=== PATIENT | female | born 1945 | race Caucasian/White ===

== ENCOUNTER → 2020-08-06 09:32 | Outpatient (CLI) | payer MEDICARE, SELFPAY ==
--- NOTE | 2020-08-06 09:39 | DI.CT.S_ITS ---
PROCEDURE: CT SINUS SCREEN WO CON INDICATIONS: Chronic pansinusitis TECHNIQUE: Noncontrast 3.0 mm axial images acquired from the frontal sinuses to the mid-sella, with coronal and sagittal reformats. For radiation dose reduction, the following was used: automated exposure control, adjustment of mA and/or kV according to patient size. COMPARISON: None. FINDINGS: Image quality: Excellent. Maxillary Sinuses: No bony remodeling or destruction. Mild mucosal thickening is seen on the left. There is minimal mucosal thickening seen on the right. Ethmoid Air Cells: No bony remodeling or destruction. Sinuses are clear. Sphenoid Sinuses: No bony remodeling or destruction. Sinuses are clear. Frontal Sinuses: No bony remodeling or destruction. Sinuses are clear. Ostiomeatal Complexes: Ostiomeatal complexes are patent. No Caleb cells. Miscellaneous: Visualized intra-orbital contents are normal. No syed bullosa or paradoxical turbinate curvature. There is mild S shaped nasal septal deviation. Incidental note is made of hyperostosis frontalis. This is not considered to be pathologic in a woman of this age. IMPRESSION: Mild maxillary sinus disease. Dictated by: Jamel Mcdaniel M.D. on 08/06/2020 at 9:53 Approved by: Jamel Mcdaniel M.D. on 08/06/2020 at 9:55
== END ==
PROVIDERS: PCP Physician Assistant; Referring Provider Otolaryngology; Visit Provider Otolaryngology
DX: J32.4 Chronic pansinusitis (principal)
CPT/HCPCS: 70486

== ENCOUNTER → 2021-06-03 12:28 | Outpatient (CLI) | payer MEDICARE, SELFPAY ==
--- NOTE | 2021-06-03 12:33 | DI.MG.S_ITS ---
BILATERAL DIGITAL SCREENING MAMMOGRAM 3D/2D WITH CAD: 06/03/2021 CLINICAL: Routine screening. Family history of breast cancer. Comparison is made to exams dated: 04/06/2020 mammogram, 03/08/2019 mammogram, and 03/06/2018 mammogram - outside location. There are scattered fibroglandular elements in both breasts. Current study was also evaluated with a Computer Aided Detection (CAD) system. No significant masses, calcifications, or other findings are seen in either breast. There has been no significant interval change. IMPRESSION: NEGATIVE There is no mammographic evidence of malignancy. A 1 year screening mammogram is recommended. This exam was interpreted at Station ID: [id number]. NOTE: For mammograms, a report in lay terms will be sent to the patient. Approximately 15% of breast malignancies will not be visualized mammographically. In the management of a palpable breast mass, a negative mammogram must not discourage biopsy of a clinically suspicious lesion. Electronically Signed By: Ed hadley/jessica:06/03/2021 13:58:56 letter sent: Normal Exam ACR BI-RADS Category 1: Negative 3341F
== END ==
PROVIDERS: PCP Internal Medicine; Referring Provider Internal Medicine; Visit Provider Internal Medicine
DX: Z12.31 Encounter for screening mammogram for malignant neoplasm of breast (principal); Z80.3 Family history of malignant neoplasm of breast
CPT/HCPCS: 77063; 77067

== ENCOUNTER → 2022-07-28 08:51 | Outpatient (CLI) | payer OTHER, SELFPAY ==
--- NOTE | 2022-07-28 | DI.MG.S_ITS ---
BILATERAL DIGITAL SCREENING MAMMOGRAM 3D/2D WITH CAD: 07/28/2022 CLINICAL: Routine screening. Family history of breast cancer. Comparison is made to exams dated: 06/03/2021 mammogram - [facility], 04/06/2020 mammogram, and 03/08/2019 mammogram - outside location. There are scattered areas of fibroglandular density in both breasts (category b / 25%-50% glandular tissue). Current study was also evaluated with a Computer Aided Detection (CAD) system. No significant masses, calcifications, or other findings are seen in either breast. There has been no significant interval change. IMPRESSION: NEGATIVE There is no mammographic evidence of malignancy. A 1 year screening mammogram is recommended. Based on the Tyrer Cuzick model (a risk assessment model) the patient's lifetime risk is 3.1% and her 10 year risk is 0.0%. According to the ACR, ACS, and NCCN guidelines, an annual breast MRI exam along with mammogram is recommended if the patient's lifetime risk is 20% or greater. This exam was interpreted at Station ID: [id number]. NOTE: For mammograms, a report in lay terms will be sent to the patient. Approximately 15% of breast malignancies will not be visualized mammographically. In the management of a palpable breast mass, a negative mammogram must not discourage biopsy of a clinically suspicious lesion. Electronically Signed By: Wesley paris/jessica:07/28/2022 09:17:18 letter sent: Normal Exam ACR BI-RADS Category 1: Negative 3341F
== END ==
PROVIDERS: PCP Internal Medicine; Referring Provider Internal Medicine; Visit Provider Internal Medicine
DX: Z12.31 Encounter for screening mammogram for malignant neoplasm of breast (principal); Z80.3 Family history of malignant neoplasm of breast
CPT/HCPCS: 77063; 77067

== ENCOUNTER → 2022-08-15 14:30 | Outpatient (CLI) | payer OTHER, SELFPAY | PROVIDERS: PCP Internal Medicine; Referring Provider Internal Medicine; Visit Provider Internal Medicine | DX: M85.88 Other specified disorders of bone density and structure, other site (principal); Z13.820 Encounter for screening for osteoporosis; Z78.0 Asymptomatic menopausal state; Z90.710 Acquired absence of both cervix and uterus | CPT/HCPCS: 77080 ==

== ENCOUNTER → 2023-01-27 08:16 | Outpatient (CLI) | payer MEDICARE, SELFPAY ==
--- NOTE | 2023-01-27 08:17 | DI.CT.S_ITS ---
PROCEDURE: CT SINUS SCREEN WO CON INDICATIONS: Eval chronic sinusitis TECHNIQUE: Noncontrast 3.0 mm axial images acquired from the frontal sinuses to the mid-sella, with coronal and sagittal reformats. For radiation dose reduction, the following was used: automated exposure control, adjustment of mA and/or kV according to patient size. COMPARISON: [facility], CT, CT SINUS SCREEN WO CON, 08/06/2020, 9:36. FINDINGS: Image quality: Excellent. Maxillary Sinuses: No bony remodeling or destruction. Mild mucosal thickening left maxillary sinus is similar to prior. Minimal mucosal thickening seen on the right. Ethmoid Air Cells: No bony remodeling or destruction. Sinuses are clear. Sphenoid Sinuses: No bony remodeling or destruction. Sinuses are clear. Frontal Sinuses: No bony remodeling or destruction. Minimal mucosal thickening inferiorly. Ostiomeatal Complexes: Ostiomeatal complexes are patent. No Caleb cells. Miscellaneous: Visualized intra-orbital contents are normal. No syed bullosa or paradoxical turbinate curvature. Mild S-shaped nasal septal deviation. Hyperostosis frontalis. Bilateral lens replacements. IMPRESSION: Mild scattered paranasal sinus mucosal thickening involving the maxillary sinuses and inferior frontal sinuses. Dictated by: Ricci Bruner M.D. on 01/27/2023 at 9:37 Approved by: Ricci Bruner M.D. on 01/27/2023 at 9:40
== END ==
PROVIDERS: PCP Family Medicine; Referring Provider Family Medicine; Visit Provider Family Medicine
DX: J32.8 Other chronic sinusitis (principal); J34.2 Deviated nasal septum
CPT/HCPCS: 70486

== ENCOUNTER → 2023-05-01 06:40 | Outpatient (CLI) | payer MEDICARE, SELFPAY ==
--- NOTE | 2023-05-01 06:41 | DI.CT.S_ITS ---
PROCEDURE: CT HEAD/BRAIN WO CON INDICATIONS: eval near syncope, possible afib TECHNIQUE: Noncontrast 4.5 mm thick angled axial sections acquired from the foramen magnum to the vertex, with coronal and sagittal reformats. For radiation dose reduction, the following was used: automated exposure control, adjustment of mA and/or kV according to patient size. COMPARISON: None. FINDINGS: Image quality: Excellent. CSF spaces: Basal cisterns are patent. No extra-axial fluid collections. The ventricles are symmetric in size and shape. Brain: No intracranial bleeds or masses. There is mild cerebral volume loss for age, with resultant ventricular and sulcal prominence. There are minimal periventricular and deep white matter chronic small vessel ischemic changes. There is minimal intracranial internal carotid artery atherosclerosis. Skull and face: Calvarium and visualized facial bones appear intact, without suspicious lesions. Sinuses: Visualized sinuses and mastoids are clear. IMPRESSION: CT head without acute intracranial abnormalities. Dictated by: Roe Gauthier M.D. on 05/01/2023 at 8:02 Approved by: Roe Gauthier M.D. on 05/01/2023 at 8:03
--- NOTE | 2023-05-01 06:41 | DI.ECHO.S_ITS ---
[place] [facility]---------+ [facility] +---------+ : : [address] : : : : [id number] : : : : Phone: [phone]+ Echocardiogram Report + + :Name: TEJAS RUDOLPH Study Date: 05/01/2023 Height: 67.5 in: :[facility] ReadingLocation: Weight: 230 lb : : Gender: Female BSA: 2.2 m2 : :: 1945 Age: 78 yrs BP: 159/92 mmHg: :Reason For Study: NEAR SYNCOPE, POSSIBLE AFIB : :Ordering Physician: FRANCHESCA, : :DEREJE Performed By: Fifi Fam : :Referring: DEREJE SORENSEN : + + Interpretation Summary The ejection fraction is estimated to be 55-60%. Diastolic parameters suggest probable normal left ventricular diastolic function and normal filling pressures. The right ventricle is normal in size and function. There is mild mitral regurgitation. There is trace aortic regurgitation. Pulmonary artery pressures cannot be estimated because of the lack of a measurable TR jet velocity but the IVC suggests a CVP of around 3 mmHg. Procedure: A two-dimensional transthoracic echocardiogram with color flow and Doppler was performed. The study quality was technically adequate. There is no prior echocardiogram noted for this patient. The patient was in sinus rhythm with heart rates between 59-74 bpm during the exam. Left Ventricle: The left ventricle is normal in size and wall thickness. The ejection fraction is estimated to be 55-60%. Diastolic parameters suggest probable normal left ventricular diastolic function and normal filling pressures. Right Ventricle: The right ventricle is normal in size and function. Atria: The left atrial size is normal. Right atrial size is normal. There is no Doppler evidence for an interatrial shunt. Mitral Valve: The mitral valve leaflets appear borderline thickened, but open well. There is mild mitral regurgitation. Aortic Valve: The aortic valve is trileaflet. There is no aortic valve stenosis. There is trace aortic regurgitation. Tricuspid Valve: The tricuspid valve is normal in structure and function. No tricuspid regurgitation. Pulmonary artery pressures cannot be estimated because of the lack of a measurable TR jet velocity but the IVC suggests a CVP of around 3 mmHg. Pulmonic Valve: The pulmonic valve leaflets are thin and pliable; valve motion is normal. There is mild pulmonic regurgitation. Great Vessels: The aortic root is normal size. The dimensions of the ascending aorta are normal. The IVC is of normal diameter and collapses greater than 50% with a sniff. This suggests a low right atrial pressure of 3 mm Hg. Pericardium/ Pleura There is no pericardial effusion. There is no pleural effusion. MMode/2D Measurements & Calculations LVIDd: 5.4 cm LVOT diam: 2.3 cm LVIDs: 3.5 cm Ao root diam: 2.8 cm FS: 34.6 % asc Aorta Diam: 3.1 cm EPSS: 1.1 cm Ao Arch Diam (Prox Trans): 2.3 cm IVSd: 0.77 cm LVPWd: 0.90 cm LV townsend. diameter/BSA (cm/m^2): 2.5 LV sys. diameter/BSA (cm/m^2): 1.6 LA A2 area: 21.9 cm2 RA long axis: 4.9 cm LA A4 area: 18.2 cm2 RA area: 14.5 cm2 LA length (vol): 5.1 cm RA vol: 36.5 ml LA vol: 66.7 ml RA : 16.9 ml/m2 LA vol index: 30.9 ml/m2 IVC diam: 1.00 cm RVD1 (basal): 4.0 cm RVD2 (mid): 3.2 cm TAPSE: 2.3 cm Doppler Measurements & Calculations Ao V2 max: 140.6 cm/sec LVOT Max Cj: 109.7 cm/sec Ao V2 mean: 103.5 cm/sec LV V1 max P.8 mmHg Ao max P.9 mmHg LV V1 VTI: 24.9 cm Ao mean P.6 mmHg BRITT(I,D): 3.0 cm2 Ao V2 VTI: 33.1 cm BRITT(V,D): 3.1 cm2 sev ratio: 0.75 BRITT indexed to BSA (cm^2/m^2): 1.4 MV E max cj: 58.5 cm/sec PA V2 max: 86.6 cm/sec MV A max cj: 80.5 cm/sec PA V2 mean: 65.9 cm/sec MV E/A: 0.73 PA mean P.8 mmHg Med Peak E' Cj: 6.0 cm/sec PA pr(Accel): 51.6 mmHg E/E' med: 9.8 Lat Peak E' Cj: 6.5 cm/sec E/E' lat: 9.0 E/e' average: 9.4 MV dec time: 0.37 sec SV(LVOT): 100.0 ml Reading Physician:12:59 PM
== END ==
PROVIDERS: PCP Family Medicine; Referring Provider Family Medicine; Visit Provider Family Medicine
DX: I34.0 Nonrheumatic mitral (valve) insufficiency (principal); I37.1 Nonrheumatic pulmonary valve insufficiency; R55 Syncope and collapse
CPT/HCPCS: 70450; 93306

== ENCOUNTER → 2023-07-18 10:27 | Outpatient (CLI) | payer MEDICARE, SELFPAY ==
[2023-07-18 11:42] LABS: Add Manual Diff / Slide Review NO; Basophils Absolute Auto 0 /uL (0-100); Basophils Percent Auto 0.9 % (0-2); Eosinophils Absolute Auto 100 /uL (0-450); Eosinophils Percent Auto 3.5 % (2-4); Hematocrit 36.1 % (36-46); Lymphocytes Absolute Auto 1400 /uL (1100-4500); Mean Corpuscular HGB Conc 33.3 % (30-36); Mean Corpuscular Hemoglobin 28.9 PG (26-34); Monocytes Absolute Auto 300 /uL (0-900); Monocytes Percent Auto 7.5 % (3-14); Neutrophils Absolute Auto 2400 /uL (1500-7000); Neutrophils Percent Auto 56.1 % (50-75); Platelet Count 217 X10^3/uL (150-400); Red Blood Cell Count 4.15 X10^6/uL (4.0-5.2); Red Cell Distribution Width 13.6 % (11.6-14.8); White Blood Cell Count 4.3 X10^3/uL (4.5-11.0)
[2023-07-18 11:49] LABS: Alanine Aminotransferase 16 IU/L (<35); Albumin 3.8 g/dL (3.5-5.0); Albumin Globulin Ratio 1.2 (1.0-2.8); Alkaline Phosphatase 65 U/L (38-126); Aspartate Aminotransferase 22 IU/L (14-36); BUN Creatinine Ratio 23.3 (6-22); Bilirubin Total 0.5 mg/dL (0.2-1.3); Blood Urea Nitrogen 17 mg/dL (7-17); Calcium 9.1 mg/dL (8.4-10.2); Carbon Dioxide 27 mmol/L (22-32); Chloride 106 mmol/L (98-107); Estimated Glomerular Filt Rate > 60 mL/min (>60); Globulin 3.2 g/dL (1.7-4.1); Glucose 94 mg/dL (80-110); HEMOLYSIS < 15 (0-50); Sodium 138 mmol/L (137-145)
== END ==
PROVIDERS: PCP Family Medicine; Referring Provider Family Medicine; Visit Provider Family Medicine
DX: I82.401 Acute embolism and thrombosis of unspecified deep veins of right lower extremity (principal); G47.30 Sleep apnea, unspecified; R42 Dizziness and giddiness; R55 Syncope and collapse
CPT/HCPCS: 36415; 80053; 84443; 85025

== ENCOUNTER → 2023-07-26 13:30 | Outpatient (CLI) | payer OTHER, SELFPAY ==
--- NOTE | 2023-07-26 13:32 | DI.US.S_ITS ---
PROCEDURE: US PERIPH VENOUS LOW EXTREM RT INDICATIONS: HISTORY OF DEEP VEIN THROMBOSIS 2016 TECHNIQUE: Real-time imaging, as well as color and pulse Doppler interrogation, were performed of the lower extremity deep veins from the inguinal ligament to the popliteal fossa, with documentation of the visualized calf veins. COMPARISON: None. FINDINGS: The common femoral, femoral, popliteal, and the visualized calf veins are normally compressible, and free of intraluminal thrombus. Color and pulse Doppler demonstrate normal phasic intraluminal flow. There is normal augmentation response to distal compression maneuver. IMPRESSION: No findings of lower extremity deep venous thrombosis. Dictated by: Kirstin Mckeon M.D. on 07/26/2023 at 17:15 Approved by: Kirstin Mckeon M.D. on 07/26/2023 at 17:15
--- NOTE | 2023-07-26 13:32 | DI.US.S_ITS ---
PROCEDURE: US CAROTID DOPPLER BI INDICATIONS: eval near syncope TECHNIQUE: Color and pulse Doppler interrogation was performed of both carotid systems, with image documentation and velocity measurements. COMPARISON: [facility], CT, CT HEAD/BRAIN WO CON, 05/01/2023, 6:50. FINDINGS: Stenosis calculations are based on SRU (Society of Radiologists in Ultrasound) criteria. The flow velocities and the arterial waveforms are normal within both carotid arterial systems. Atherosclerotic plaque is seen on both sides. The estimated degree of internal carotid artery stenosis is less than 50%. Antegrade flow is confirmed within both vertebral arteries. IMPRESSION: No hemodynamically significant stenosis is seen. Atherosclerotic plaque is noted bilaterally. Dictated by: Jamel Mcdaniel M.D. on 07/26/2023 at 14:16 Approved by: Jamel Mcdaniel M.D. on 07/26/2023 at 14:16
== END ==
LOC: US 13:32
PROVIDERS: PCP Family Medicine; Referring Provider Family Medicine; Visit Provider Family Medicine
DX: I82.401 Acute embolism and thrombosis of unspecified deep veins of right lower extremity (principal); I65.23 Occlusion and stenosis of bilateral carotid arteries; R42 Dizziness and giddiness; R55 Syncope and collapse
CPT/HCPCS: 93880; 93971

== ENCOUNTER → 2023-08-02 12:49 | Outpatient (CLI) | payer OTHER, SELFPAY ==
--- NOTE | 2023-08-02 12:51 | DI.MG.S_ITS ---
BILATERAL DIGITAL SCREENING MAMMOGRAM 3D/2D WITH CAD: 08/02/2023 CLINICAL: Routine screening. Family history of breast cancer. Comparison is made to exams dated: 07/28/2022 mammogram, 06/03/2021 mammogram - , and 04/06/2020 mammogram - outside location. There are scattered areas of fibroglandular density in both breasts (category b / 25%-50% glandular tissue). Current study was also evaluated with a Computer Aided Detection (CAD) system. No significant masses, calcifications, or other findings are seen in either breast. There has been no significant interval change. IMPRESSION: NEGATIVE There is no mammographic evidence of malignancy. A 1 year screening mammogram is recommended. Based on the Tyrer Cuzick model (a risk assessment model) the patient's lifetime risk is 2.8% and her 10 year risk is 0.0%. According to the ACR, ACS, and NCCN guidelines, an annual breast MRI exam along with mammogram is recommended if the patient's lifetime risk is 20% or greater. This exam was interpreted at Station ID: [id number]. NOTE: For mammograms, a report in lay terms will be sent to the patient. Approximately 15% of breast malignancies will not be visualized mammographically. In the management of a palpable breast mass, a negative mammogram must not discourage biopsy of a clinically suspicious lesion. Electronically Signed By: Roe armendariz/jessica:08/02/2023 23:42:39 letter sent: Normal Exam ACR BI-RADS Category 1: Negative 3341F
== END ==
PROVIDERS: PCP Family Medicine; Referring Provider Family Medicine; Visit Provider Family Medicine
DX: Z12.31 Encounter for screening mammogram for malignant neoplasm of breast (principal); Z80.3 Family history of malignant neoplasm of breast; R92.323 Mammographic fibroglandular density, bilateral breasts
CPT/HCPCS: 77063; 77067

== ENCOUNTER → 2023-08-18 07:49 | Outpatient (CLI) | payer OTHER, SELFPAY ==
[2023-08-18 09:00] LABS: BUN Creatinine Ratio 19.7 (6-22); Blood Urea Nitrogen 14 mg/dL (7-17); Calcium 9.2 mg/dL (8.4-10.2); Carbon Dioxide 26 mmol/L (22-32); Chloride 105 mmol/L (98-107); Cholesterol 194 mg/dL (140-199); Estimated Glomerular Filt Rate > 60 mL/min (>60); Glucose 99 mg/dL (80-110); HDL Cholesterol 65 mg/dL (40-60); HEMOLYSIS < 15 (0-50); LDL Cholesterol Calculated 108 mg/dL (<100); Potassium 3.8 mmol/L (3.4-5.1); Sodium 140 mmol/L (137-145); Triglycerides 107 mg/dL (35-150)
== END ==
PROVIDERS: PCP Family Medicine; Referring Provider Internal Medicine Cardiovascular Disease; Visit Provider Internal Medicine Cardiovascular Disease
DX: Z13.220 Encounter for screening for lipoid disorders (principal); R42 Dizziness and giddiness
CPT/HCPCS: 36415; 80048; 80061

== ENCOUNTER → 2023-08-23 09:12 | Outpatient (CLI) | payer OTHER, SELFPAY ==
--- NOTE | 2023-08-23 09:16 | DI.CT.S_ITS ---
PROCEDURE: CT ANGIO HEAD AND NECK INDICATIONS: Dizziness and giddiness TECHNIQUE: After the administration of intravenous contrast, 1 mm thick sections acquired from the aortic arch through the [place] of [place]u. 3-dimensional dsokdfd-txllniqox-hdrzqcfonh (MIP) and/or volume rendering reformats were acquired of the central intracranial vasculature and neck separately. For radiation dose reduction, the following was used: automated exposure control, adjustment of mA and/or kV according to patient size. COMPARISON: [facility], US, US CAROTID DOPPLER BI, 07/26/2023, 14:33. [facility], CT, CT HEAD/BRAIN WO CON, 05/01/2023, 6:50. FINDINGS: Image quality: There is streak artifact seen through the level of the shoulders. BRAIN: CSF spaces: Ventricles are normal in size and shape. Basal cisterns are patent. No extra-axial fluid collections. Brain: No significant abnormality of the brain can be seen. Skull and face: Calvarium and facial bones appear intact, without suspicious lesions. Orbits appear normal. Incidental note is made of hyperostosis frontalis. This is not considered to be pathologic in a woman of this age. Sinuses: Sinuses and mastoids are clear. HEAD CT ANGIOGRAPHY: Anterior circulation: Intracranial internal carotid arteries are normal in size and flow. There is a diminutive left A1 segment, with a corresponding robust right A1 segment. This is considered to be a normal developmental variant of the [place] of [place], of typically no clinical consequence. The flow within the paired anterior cerebral arteries is otherwise normal and symmetric. The flow within the middle cerebral arteries is normal and symmetric. The anterior communicating artery is seen. No aneurysms are seen. Posterior circulation: Visualized portions of the vertebral arteries demonstrate normal caliber, and join to form a normal appearing basilar artery. Flow within the posterior cerebral arteries is normal and symmetric. No aneurysms are seen. NECK CT ANGIOGRAPHY: Carotid system: The great vessels demonstrate a conventional anatomy as they arise from the aortic arch. The origins of the common carotid arteries appear patent. The common carotid arteries demonstrate normal caliber and courses. The bifurcation regions are both widely patent. The internal carotid arteries demonstrate normal calibers and courses. Posterior circulation: The origins of the vertebral arteries both appear widely patent. The more superior extracranial portions of both vertebral arteries also demonstrate normal courses and calibers. They join to form a normal appearing basilar artery. Soft tissues: Visualized neck soft tissues demonstrate no suspicious abnormalities. Bones: No suspicious bony lesions. Visualized cervical spine appears normally aligned. There is yebs-oo-ppshfadb disc space narrowing seen at C5-C6, with associated endplate irregularity and sclerosis. Milder degenerative changes are seen elsewhere. IMPRESSION: No significant intracranial arterial abnormality is seen. No significant abnormality is seen within the arteries of the neck. Additional findings: [place]-so-Crieqq developmental anomalies Focal C5-C6 degenerative change Any quantitative measurements of stenosis were performed using NASCET criteria. Dictated by: Jamel Mcdaniel M.D. on 08/23/2023 at 10:04 Approved by: Jamel Mcdaniel M.D. on 08/23/2023 at 10:06
== END ==
PROVIDERS: PCP Family Medicine; Referring Provider Internal Medicine Cardiovascular Disease; Visit Provider Internal Medicine Cardiovascular Disease
DX: R42 Dizziness and giddiness (principal); M47.812 Spondylosis without myelopathy or radiculopathy, cervical region
CPT/HCPCS: 70496; 70498; Q9967

== ENCOUNTER → 2023-09-21 13:39 | Outpatient (CLI) | payer MEDICARE, SELFPAY ==
--- NOTE | 2023-09-21 13:40 | DI.MRI.S_ITS ---
PROCEDURE: MR HEAD/BRAIN WO/W CON INDICATIONS: Trigeminal neuralgia TECHNIQUE: Noncontrast sagittal T1 spin echo, axial T2 fast spin echo, axial FLAIR, axial gradient echo, axial diffusion and ADC through the brain. Axial/sagittal/coronal 3-D CISS, thin-slice axial T1 spin echo with fat saturation through the skull base. After the administration of contrast, axial and coronal thin-slice T1 spin echo with fat saturation through the skull base, axial and coronal and sagittal T1 spin echo with fat saturation through the brain. COMPARISON: None. FINDINGS: Image quality: Excellent. Trigeminal nerves: The right superior cerebellar artery courses in close proximity to the right trigeminal root entry zone at the medial aspect of the trigeminal nerve. The trigeminal nerves otherwise are within normal limits. Trigeminal ganglia are grossly unremarkable. CSF spaces: Ventricles are normal in size and shape. No extra-axial fluid collections. Basal cisterns are patent. Brain: No intracranial bleeds or mass effects. Mild diffuse cerebral volume loss. Mild degree of patchy high FLAIR signal within the periventricular and subcortical white matter. No abnormal intracranial enhancement. Diffusion weighted images show no acute ischemic insults. [place]-white matter interface is intact. Brainstem is normal. Normal intravascular flow voids are present. Skull and face: Calvarial marrow signal is normal. Orbits appear normal. Sinuses: Sinuses and mastoids appear clear. IMPRESSION: 1. 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 2. No acute process. No recent infarct. 3. Mild volume loss and small vessel ischemic disease Dictated by: Brittany Armendariz M.D. on 09/21/2023 at 15:37 Approved by: Brittany Armendariz M.D. on 09/21/2023 at 15:53
== END ==
PROVIDERS: PCP Family Medicine; Referring Provider Dentist; Visit Provider Dentist
DX: G50.0 Trigeminal neuralgia (principal)
CPT/HCPCS: 70553; A9579

== ENCOUNTER → 2023-12-11 08:11 | Outpatient (CLI) | payer MEDICARE, SELFPAY ==
[2023-12-11 08:54] LABS: COVID-19 CEPHEID 4-PLEX PCR Negative (Negative); Influenza A - CEPHEID Flu A NEGATIVE (NEGATIVE); Influenza B - CEPHEID Flu B NEGATIVE (NEGATIVE); Respiratory Syncytial Virus Negative (Negative)
== END ==
PROVIDERS: PCP Family Medicine; Referring Provider Physician Assistant Surgical; Visit Provider Physician Assistant Surgical
DX: R05.1 Acute cough (principal)
CPT/HCPCS: 0241U

== ENCOUNTER 2024-02-11 10:24 | Emergency (ER) | payer MEDICARE, SELFPAY ==
[2024-02-11] VITALS (7 sets, daily range): BP systolic 119–162; BP diastolic 57–81; PULSE 55–72; RESP 19–35; TEMP 36.6–36.7; O2SAT 97–99
--- NOTE | 2024-02-11 10:30 | DI.RAD.S_ITS ---
PROCEDURE: XR CHEST 1V INDICATIONS: chest pain TECHNIQUE: One view of the chest was acquired. COMPARISON: None. FINDINGS: Surgical changes and devices: None. Lungs and pleura: Lungs are clear. No pleural effusions or pneumothorax. Mediastinum: Mediastinal contours appear normal. The heart is at the upper limits of normal size for technique. Bones and chest wall: No suspicious bony lesions. Overlying soft tissues appear unremarkable. IMPRESSION: No acute cardiopulmonary abnormality is seen. Dictated by: Veronica Aceves M.D. on 02/11/2024 at 9:48 Approved by: Veronica Aceves M.D. on 02/11/2024 at 9:49
--- NOTE | 2024-02-11 10:33 | EKG_ITS ---
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
[2024-02-11 10:52] LABS: Add Manual Diff / Slide Review NO; Basophils Absolute Auto 0 /uL (0-100); Eosinophils Absolute Auto 100 /uL (0-450); Eosinophils Percent Auto 2.6 % (2-4); Hematocrit 35.3 % (36-46); Lymphocytes Absolute Auto 1400 /uL (1100-4500); Lymphocytes Percent Auto 28.4 % (25-40); Mean Corpuscular HGB Conc 33.8 % (30-36); Mean Corpuscular Hemoglobin 30.5 PG (26-34); Monocytes Absolute Auto 400 /uL (0-900); Monocytes Percent Auto 7.9 % (3-14); Neutrophils Absolute Auto 3000 /uL (1500-7000); Neutrophils Percent Auto 60.1 % (50-75); Platelet Count 208 X10^3/uL (150-400); Red Blood Cell Count 3.92 X10^6/uL (4.0-5.2); Red Cell Distribution Width 14.3 % (11.6-14.8)
[2024-02-11 10:58] LABS: Prothrombin Time 11.2 SECONDS (9.4-12.5)
[2024-02-11 11:01] LABS: PTT Partial Thromboplastin Tim 33 SECONDS (25.1-36.5)
[2024-02-11 11:02] LABS: Alanine Aminotransferase 16 IU/L (<35); Albumin 3.9 g/dL (3.5-5.0); Albumin Globulin Ratio 1.4 (1.0-2.8); Alkaline Phosphatase 66 U/L (38-126); Aspartate Aminotransferase 21 IU/L (14-36); BUN Creatinine Ratio 19.8 (6-22); Bilirubin Total 0.5 mg/dL (0.2-1.3); Blood Urea Nitrogen 17 mg/dL (7-17); Calcium 9.1 mg/dL (8.4-10.2); Carbon Dioxide 25 mmol/L (22-32); Chloride 109 mmol/L (98-107); Creatine Kinase 64 U/L (30-135); Estimated Glomerular Filt Rate > 60 mL/min (>60); Globulin 2.7 g/dL (1.7-4.1); Glucose 90 mg/dL (80-110); HEMOLYSIS < 15 (0-50); Lipase 127 U/L (23-300); Magnesium 2.2 mg/dL (1.6-2.3); Potassium 4.4 mmol/L (3.4-5.1); Sodium 138 mmol/L (137-145); Total Protein 6.6 g/dL (6.3-8.2)
[2024-02-11 11:13] LABS: NT-proBNP (BNP-Adult 18+) 303 pg/mL (<450); Troponin I < 0.012 ng/mL (0.01-0.034)
--- NOTE | 2024-02-11 11:16 | ED_ITS ---
HPI - Chest Pain General Chief Complaint: Chest Pain Stated Complaint: Heart Problems Time Seen by Provider: 02/11/24 10:48 History of Present Illness HPI narrative: Patient 79-year-old female history of recurrent dizziness chronic sinusitis LAUREEN chronic orthopedic issues presenting today with chest pain palpitations. She reports that she has had significant workup in the past regards to some chest heaviness. According to her apple watch over the last 3 days she has had inaccurate unreadable rhythm strips. Upon my review it does look like she is frequent PVCs with bigeminy and trigeminy she currently is it a normal sinus rhythm. She reports that she does not regularly check her Apple watch but she started to she started having some chest heaviness she has not dizzy lightheaded she has not had any sort of syncopal episodes. She has no longer having chest pain. She also reports some neck pain as well. She reports that she has had a tilt-table she has had ZIO patch she is followed by Cardiology and actually saw cardiology in October. 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 Chest pain longstanding history of substernal pressure no exertional nonradiating no shortness of breath nausea or diaphoresis Coronary artery disease on 81 mg of aspirin Conclusion syncope and orthostatic hypotension tilt-table test overwhelmed likely demonstrated orthostatic hypotension encourage her to continue electrolyte supplementation and hydration also advised to use compression stockings during the day consideration could be made for abdominal binder Related Data Home Medications Medication Instructions Recorded Confirmed fludrocortisone 0.1 mg tablet 0.1 mg PO DAILY 12/11/23 12/11/23 Previous Rx's Medication Instructions Recorded ipratropium bromide 21 mcg (0.03 2 spray intranasal BID PRN nasal 12/11/23 %) nasal spray congestion #30 mL sodium,potassium,mag sulfates 17.5 See Rx Instructions PO .COMPLEX 01/24/24 gram-3.13 gram-1.6 gram oral soln #354 mL (Suprep Bowel Prep Kit) magnesium oxide 250 mg PO DAILY #30 tabs 02/11/24 Allergies Allergy/AdvReac Type Severity Reaction Status Date / Time No Known Drug Allergies Allergy Unverified 12/11/23 08:09 Patient History Medical History Well adult exam Medicare annual wellness visit, subsequent Dizziness of unknown etiology Ganglion cyst Chronic sinusitis Sleep apnea (~2008) Ankle fracture (~1961) Bilateral foot pain (~1999) Mumps (~1951) Measles (~1949) Chicken pox (~1955) Cataracts, bilateral (~2013) Ovarian cyst (~1971) Endometriosis (~1971) Colon polyps Deep vein blood clot of right lower extremity (~2015) Surgical History Anesthesia Rupture of ovarian cyst (~1971) History of breast biopsy (~1984) S/P foot surgery, right (~2002) History of appendectomy (~1965) History of total left knee replacement (~2006) History of cholecystectomy (~2010) History of lung surgery (~2010) History of foot surgery (~2013) History of cataract removal with insertion of prosthetic lens (~2013) History of total right knee replacement (~2017) History of hysterectomy (~1971) Family History Father Cancer History of heart disease Mother Cancer History of heart disease Hyperlipidemia Hypertension Broken hip Grandfather Liver disease Grandmother History of heart disease Social History Smoking Status: Never smoker Smoking Status: Never smoker alcohol intake frequency: holidays/special occasions only Substance Use Type: does not use Exam Initial Vital Signs Initial Vital Signs: Vital Signs Temperature 97.8 F 02/11/24 10:47 Pulse Rate 72 02/11/24 10:47 Respiratory Rate 19 02/11/24 10:47 Blood Pressure 162/71 H 02/11/24 10:47 Pulse Oximetry 98 02/11/24 10:47 Oxygen Delivery Method Room Air 02/11/24 10:47 GENERAL: Alert pleasant 79-year-old female and in no acute distress. HEENT: Head atraumatic,EOMI, pupils reactive, face symmetric, moist mucous membranes CARDIOVASCULAR: Regular rate and rhythm without murmurs, rubs or gallops. RESPIRATORY: Breath sounds equal bilaterally, no wheezes rales or rhonchi. ABDOMEN: Soft, nontender. Normoactive bowel sounds all 4 quadrants. No guarding or rebound. EXTREMITIES: Normal range of motion, no clubbing or edema. Neurovascularly intact NEUROLOGICAL: Alert and oriented x4.Normal gait and speech. Cranial nerves II through XII grossly intact. SKIN: Warm, dry, no laceration, no petechiae, no rashes or lesions. Course Orders Ordered: ED Orders 02/11/24 10:30 XR chest 1V Stat EKG-12 Lead Stat 02/11/24 10:43 Complete Blood Count AUTO DIFF Stat Comprehensive Metabolic Panel Stat Lipase Stat Magnesium Stat NT-proBNP (BNP-Adult 18+) Stat PTT Partial Thromboplastin Celso Stat Prothrombin Time INR Stat Troponin & CK Cardiac Panel Stat 02/11/24 12:45 EKG-12 Lead Stat 02/11/24 12:50 Troponin I Stat Vital Signs Vital signs: Vital Signs - 8 hr 02/11/24 10:47 02/11/24 11:30 02/11/24 12:01 Temperature 97.8 F Pulse Rate 72 64 57 L Respiratory Rate 19 35 H 27 H Blood Pressure 162/71 H 160/81 H 126/64 Pulse Oximetry 98 98 98 Oxygen Delivery Method Room Air 02/11/24 12:30 02/11/24 13:00 02/11/24 13:30 Temperature Pulse Rate 63 55 L 63 Respiratory Rate 26 H 19 20 Blood Pressure 119/71 122/57 L Pulse Oximetry 98 99 97 Oxygen Delivery Method Room Air 02/11/24 13:30 02/11/24 13:58 Temperature 98.1 F Pulse Rate Respiratory Rate Blood Pressure 142/67 H Pulse Oximetry Oxygen Delivery Method MDM - Chest Pain Lab Data 02/11/24 10:43 02/11/24 10:43 Labs: Lab Results 02/11/24 02/11/24 Range/Units 10:43 12:50 WBC 5.0 (4.5-11.0) X10^3/uL RBC 3.92 L (4.0-5.2) X10^6/uL Hgb 12.0 (12.0-16.0) g/dL Hct 35.3 L (36-46) % MCV 90.0 (80-100) fL MCH 30.5 (26-34) PG MCHC 33.8 (30-36) % RDW 14.3 (11.6-14.8) % Plt Count 208 (150-400) X10^3/uL Neut % (Auto) 60.1 (50-75) % Lymph % (Auto) 28.4 (25-40) % [place]mort[place] % (Auto) 7.9 (3-14) % Eos % (Auto) 2.6 (2-4) % Baso % (Auto) 1.0 (0-2) % Neut # (Auto) 3000 (1759-6721) /uL Lymph # (Auto) 1400 (3363-1549) /uL [place] # (Auto) 400 (0-900) /uL Eos # (Auto) 100 (0-450) /uL Baso # (Auto) 0 (0-100) /uL PT 11.2 (9.4-12.5) SECONDS INR 1.0 (0.9-1.3) APTT 33 (25.1-36.5) SECONDS Sodium 138 (137-145) mmol/L Potassium 4.4 (3.4-5.1) mmol/L Chloride 109 H (98-107) mmol/L Carbon Dioxide 25 (22-32) mmol/L BUN 17 (7-17) mg/dL Creatinine 0.86 (0.52-1.04) mg/dL Estimated GFR > 60 (>60) mL/min BUN/Creatinine Ratio 19.8 (6-22) Glucose 90 (80-110) mg/dL Calcium 9.1 (8.4-10.2) mg/dL Magnesium 2.2 (1.6-2.3) mg/dL Total Bilirubin 0.5 (0.2-1.3) mg/dL AST 21 (14-36) IU/L ALT 16 (<35) IU/L Alkaline Phosphatase 66 (38-126) U/L Total Creatine Kinase 64 (30-135) U/L Troponin I < 0.012 < 0.012 (0.01-0.034) ng/mL NT-Pro-B Natriuret Pep 303 (<450) pg/mL Total Protein 6.6 (6.3-8.2) g/dL Albumin 3.9 (3.5-5.0) g/dL Globulin 2.7 (1.7-4.1) g/dL Albumin/Globulin Ratio 1.4 (1.0-2.8) Lipase 127 (23-300) U/L Imaging Data Chest x-ray: Radiologist's Impression: PROCEDURE: XR CHEST 1V INDICATIONS: chest pain TECHNIQUE: One view of the chest was acquired. COMPARISON: None. FINDINGS: Surgical changes and devices: None. Lungs and pleura: Lungs are clear. No pleural effusions or pneumothorax. Mediastinum: Mediastinal contours appear normal. The heart is at the upper limits of normal size for technique. Bones and chest wall: No suspicious bony lesions. Overlying soft tissues appear unremarkable. IMPRESSION: No acute cardiopulmonary abnormality is seen. Dictated by: Veronica Aceves M.D. on 02/11/2024 at 9:48 ECG Data Attestation: I personally reviewed and interpreted this ECG as follows: Interpretation: Normal sinus rhythm, rate 72 WI interval 172 QRS [address] changes right bundle-branch block noted no prior EKGs to EKG 2. Sinus rhythm persistent right bundle-branch block no ischemic changes rate 61 MDM Narrative Medical decision making narrative: Patient 71-year-old female history orthostatic hypotension sitting today with chest discomfort ongoing for the last couple of days. Apple cardiac monitoring has been reviewed it does look like she has been did out of bigeminy and trigeminy she is currently at a normal sinus rhythm without any PVCs she is asymptomatic. Blood work has been reviewed overall reassuring she is 2- troponins stable normal kidney function and electrolytes no leukocytosis or anemia Chest x-ray reviewed no acute cardiopulmonary process EKGs normal sinus rhythm Patient has had few days of symptomatic PVCs but is no longer having PVCs in his no longer symptomatic. 1345 Dr. Aguillon on-call cardiology updated on patient's symptoms test results recommends magnesium and got beta-chaya follow-up with Cardiology Discussion with patient about cardiology recommendation she understands and agrees. She has had no factors such as syncope or hypotension Discharge Plan Departure Patient Disposition: Home Clinical Impression: Frequent PVCs Instructions: Premature Ventricular Beats Activity Restrictions/Additional Instructions: *You have been diagnosed with PVC *What to do: At this time I did talk with Cardiology who recommended magnesium supplement and to follow-up with Cardiology *Continue to take medications as directed Magnesium oxide 250 mg daily *Follow up with your primary care provider in 2-3 days or call [phone] Call and follow-up with Cardiology *Return to ER if you should have increasing frequency of PVCs dizziness lightheadedness palpitations passing or any new, worsening or concerning symptoms Prescriptions: New magnesium oxide 250 mg magnesium tablet 250 mg PO DAILY Qty: 30 0RF No Action fludrocortisone 0.1 mg tablet 0.1 mg PO DAILY ipratropium bromide 21 mcg (0.03 %) spray,non-aerosol 2 spray intranasal BID PRN (Reason: nasal congestion) Qty: 30 0RF Rx Instructions: administer into each nostril sodium,potassium,mag sulfates [Suprep Bowel Prep Kit] 17.5-3.13-1.6 gram recon soln See Rx Instructions PO .COMPLEX Qty: 354 0RF Rx Instructions: Take as instructed by Physician. Referrals: Goldie Ross DO [Physician] - Shiv Espinosa DO [Primary Care Provider] - Stand Alone Forms: Patient Portal/API
--- NOTE | 2024-02-11 11:47 | PC.NURSE ---
Acute on chronic CP.
--- NOTE | 2024-02-11 12:45 | EKG_ITS ---
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
[2024-02-11 13:17] LABS: Troponin I < 0.012 ng/mL (0.01-0.034)
== END 2024-02-11 13:58 | disposition home or self-care (01) ==
PROVIDERS: Emergency Provider Emergency Medicine; PCP Family Medicine
DX: I49.3 Ventricular premature depolarization (principal); R07.9 Chest pain, unspecified
CPT/HCPCS: 36415; 71045; 80053; 82550; 83690; 83735; 83880; 84484; 85025; 85610; 85730; 93005; 99283; 99284

== ENCOUNTER 2024-02-22 06:54 | Day surgery (SDC) | payer MEDICARE, SELFPAY ==
--- NOTE | 2024-02-22 | PATH_ITS ---
[facility] Accession Number: [id number] No. of containers..02 Tissue . 01 Material submitted: . PART A: colon - DESCENDING COLON POLYP PART B: rectum - RECTAL COLON POLYP . 01 Diagnosis: Part A: DESCENDING COLON POLYP: Tubular adenoma. . Part B: RECTAL COLON POLYP: Hyperplastic polyp. [facility] [place] 02/26/2024 1327 Local . 01 Electronically signed: . Ed Dominguez MD, Pathologist NPI- [id number] . 01 Gross description: . A. Received in formalin with two patient identifiers and descending colon polyp, is a single aguilar soft tissue fragments, 0.5 cm in greatest dimension. Submitted in A1. . B. Received in formalin with two patient identifiers and rectal colon polyp, is a single aguilar soft tissue fragment, 0.3 cm in greatest dimension. Submitted in B1. ([id number]) /MRV 02/26/2024 1327 Local . 01 Pathologist provided ICD-10: D12.4, K62.1 . 01 CPT . 547471, 224467 Specimen Comment: A courtesy copy of this report has been sent to [phone] Performed at: [address] [facility] [address], [place], [place] [id number] MD Ed Dominguez MD Phone: [phone]
[2024-02-22 07:20] VITALS: BP 138/82; PULSE 87; RESP 18; TEMP 36.1; O2SAT 97
[2024-02-22] MEDS: LACTATED RINGERS 1,000 ML 42 ML IV (07:28)
--- NOTE | 2024-02-22 08:07 | PM.HP.1 ---
History of Present Illness History of Present Illness Date Patient Seen: 02/22/24 Time Patient Seen: 08:07 Chief complaint: Colonoscopy Narrative: Belle is a 79-year-old woman in for colonoscopy. Her last 1 was in 2019 and several polyps were removed. She was told to have another colonoscopy after 3 years but she would some other things going on in her life and so she put off the colonoscopy until now. No family history of colon cancer. [facility] Medical History Well adult exam Medicare annual wellness visit, subsequent Dizziness of unknown etiology Ganglion cyst Chronic sinusitis Sleep apnea (~2008) Ankle fracture (~1961) Bilateral foot pain (~1999) Mumps (~1951) Measles (~1949) Chicken pox (~1955) Cataracts, bilateral (~2013) Ovarian cyst (~1971) Endometriosis (~1971) Colon polyps Deep vein blood clot of right lower extremity (~2015) Surgical History Anesthesia Rupture of ovarian cyst (~1971) History of breast biopsy (~1984) S/P foot surgery, right (~2002) History of appendectomy (~1965) History of total left knee replacement (~2006) History of cholecystectomy (~2010) History of lung surgery (~2010) History of foot surgery (~2013) History of cataract removal with insertion of prosthetic lens (~2013) History of total right knee replacement (~2017) History of hysterectomy (~1971) Family History Father Cancer History of heart disease Mother Cancer History of heart disease Hyperlipidemia Hypertension Broken hip Grandfather Liver disease Grandmother History of heart disease Social History Smoking Status: Never smoker alcohol intake: current Meds Home Medications and Allergies Home Medications Medication Instructions Recorded Confirmed Type fludrocortisone 0.1 mg tablet 0.1 mg PO DAILY 12/11/23 02/13/24 History ipratropium bromide 21 mcg (0.03 2 spray intranasal BID PRN nasal 12/11/23 02/13/24 Rx %) nasal spray congestion #30 mL magnesium oxide 250 mg PO DAILY #30 tabs 02/11/24 02/13/24 Rx metoprolol succinate 25 mg 25 mg PO DAILY #30 tabs 02/13/24 02/22/24 Rx tablet,extended release 24 hr Allergies Allergy/AdvReac Type Severity Reaction Status Date / Time No Known Drug Allergies Allergy Verified 02/22/24 07:12 Exam Vital Signs (past 8 hours): - 02/22/24 07:20 Temperature 97 F L Pulse Rate 87 Respiratory Rate 18 Blood Pressure 138/82 Pulse Oximetry 97 Oxygen Delivery Method Room Air Oxygen Delivery Method Room Air Resp Effort & Inspection: normal respiratory effort Assessment & Plan Assessment and plan (1) History of colon polyps: Status: Acute Plan We reviewed the risks and benefits of colonoscopy for history of polyps and she would like proceed. Time-Based Coding :: [TOTAL MINUTES] spent with patient and on the chart (including review of chart, obtaining history, exam, reviewing outside data, placing orders, documenting exam and treatment plan, and counseling patient) on [DATE].
[2024-02-22 08:40] VITALS: BP 106/39; PULSE 75; RESP 16; TEMP 36.8; O2SAT 98
--- NOTE | 2024-02-22 08:43 | PM.OP.COLON ---
Operative Date/Time/Diagnoses Date of procedure: 02/22/24 Time of procedure: 08:43 Pre-op diagnosis: History of polyps Post-op diagnosis: same Procedure & Clinicians Study performed: Colonoscopy Same procedure as scheduled: Yes Surgeon: Beto Lozano Procedure Notes Procedure in detail: Surgeon: Beto Lozano MD Anesthesia: Grecia Thompson MD Procedure: The patient was brought to the endoscopy suite, placed in left lateral decubitus position. The patient was connected to monitoring devices. A time-out was performed. Sedation was administered. Once the patient was adequately sedated, a digital rectal exam was performed and was normal. The scope was then inserted and advanced to the cecum where the appendiceal orifice was identified and photographed. The scope was then slowly withdrawn over greater than 6 minutes. The mucosa was thoroughly inspected. There was pandiverticulosis. There was a 3 mm polyp in the descending colon removed with a cold snare. There was a 3 mm polyp in the rectum removed with a cold snare. The scope was retroflexed in the rectum. No other abnormalities were noted. The scope was straightened and removed. The patient was awakened and brought to recovery. Scope withdrawal time: 8 minutes Sedation time: 17 minutes EBL: 5 mL Findings: Pandiverticulosis, 3 mm polyp in the descending colon and 3 mm polyp in the rectum Post-procedure Disposition: PACU
[2024-02-22 08:45] VITALS: BP 102/58; PULSE 69; RESP 16; O2SAT 98
[2024-02-22 08:55] VITALS: BP 111/48; PULSE 66; RESP 16; TEMP 36.8; O2SAT 98
== END 2024-02-22 09:02 | disposition home or self-care (01) ==
PROVIDERS: PCP Family Medicine; Referring Provider Surgery; Visit Provider Surgery
PROC: 0DJD8ZZ Inspection of Lower Intestinal Tract, Via Natural or Artificial Opening Endoscopic (ICD-10-PCS; CPT 45378; principal; 2024-02-22 08:15)
DX: Z12.11 Encounter for screening for malignant neoplasm of colon (principal); Z86.010 Personal history of colon polyps; K57.30 Diverticulosis of large intestine without perforation or abscess without bleeding; D12.4 Benign neoplasm of descending colon; K62.1 Rectal polyp
CPT/HCPCS: 45385; J2704

== ENCOUNTER → 2024-08-26 11:15 | Outpatient (CLI) | payer MEDICARE, SELFPAY ==
[2024-08-26 12:25] LABS: Influenza A - CEPHEID Flu A NEGATIVE (NEGATIVE); Influenza B - CEPHEID Flu B NEGATIVE (NEGATIVE); Respiratory Syncytial Virus POSITIVE (Negative)
[2024-08-26 12:26] LABS: COVID-19 CEPHEID 4-PLEX PCR Negative (Negative)
== END ==
PROVIDERS: PCP Family Medicine; Visit Provider Nurse Practitioner Family
DX: R05.9 Cough, unspecified (principal); J02.9 Acute pharyngitis, unspecified
CPT/HCPCS: 0241U; 87070

== ENCOUNTER → 2024-08-26 11:37 | Outpatient (CLI) | payer MEDICARE, SELFPAY ==
--- NOTE | 2024-08-26 11:39 | DI.RAD.S_ITS ---
PROCEDURE: XR CHEST 2V INDICATIONS: Cough TECHNIQUE: 2 views of the chest were acquired. COMPARISON: [facility], CR, XR CHEST 1V, 02/11/2024, 10:30. FINDINGS: Surgical changes and devices: None. Lungs and pleura: Lungs are clear. No pleural effusions or pneumothorax. Mediastinum: Mediastinal contours are normal. Heart size is enlarged. Bones and chest wall: No suspicious bony abnormalities. Soft tissues appear unremarkable. IMPRESSION: No acute pulmonary process. Dictated by: Manju Whitney M.D. on 08/26/2024 at 15:23 Approved by: Manju Whitney M.D. on 08/26/2024 at 15:23
== END ==
PROVIDERS: PCP Family Medicine; Referring Provider Nurse Practitioner Family; Visit Provider Nurse Practitioner Family
DX: R05.9 Cough, unspecified (principal); J02.9 Acute pharyngitis, unspecified
CPT/HCPCS: 0241U; 71046; 87070

== ENCOUNTER → 2024-09-25 08:37 | Outpatient (CLI) | payer MEDICARE, SELFPAY ==
[2024-09-25 09:30] LABS: Add Manual Diff / Slide Review NO; Basophils Absolute Auto 0 /uL (0-100); Basophils Percent Auto 0.9 % (0-2); Eosinophils Absolute Auto 200 /uL (0-450); Eosinophils Percent Auto 3.8 % (2-4); Hematocrit 36.9 % (36-46); Hemoglobin 12.3 g/dL (12.0-16.0); Lymphocytes Absolute Auto 1300 /uL (1100-4500); Lymphocytes Percent Auto 30.2 % (25-40); Mean Corpuscular HGB Conc 33.4 % (30-36); Monocytes Absolute Auto 300 /uL (0-900); Monocytes Percent Auto 7.9 % (3-14); Neutrophils Absolute Auto 2400 /uL (1500-7000); Neutrophils Percent Auto 57.2 % (50-75); Platelet Count 215 X10^3/uL (150-400); Red Cell Distribution Width 13.8 % (11.6-14.8); White Blood Cell Count 4.3 X10^3/uL (4.5-11.0)
[2024-09-25 09:50] LABS: Alanine Aminotransferase 18 IU/L (<35); Albumin Globulin Ratio 1.5 (1.0-2.8); Alkaline Phosphatase 74 U/L (38-126); Aspartate Aminotransferase 25 IU/L (14-36); BUN Creatinine Ratio 16.7 (6-22); Bilirubin Total 0.6 mg/dL (0.2-1.3); Blood Urea Nitrogen 12 mg/dL (7-17); Calcium 9.2 mg/dL (8.4-10.2); Carbon Dioxide 26 mmol/L (22-32); Chloride 107 mmol/L (98-107); Estimated Glomerular Filt Rate > 60 mL/min (>60); Globulin 2.6 g/dL (1.7-4.1); Glucose 102 mg/dL (80-110); HEMOLYSIS < 15 (0-50); Potassium 4.4 mmol/L (3.4-5.1); Sodium 139 mmol/L (137-145); Total Protein 6.6 g/dL (6.3-8.2)
[2024-09-25 10:26] LABS: TSH w/ Reflex to FT4 1.16 uIU/mL (0.47-4.68)
== END ==
PROVIDERS: PCP Family Medicine; Referring Provider Family Medicine; Visit Provider Family Medicine
DX: Z00.00 Encounter for general adult medical examination without abnormal findings (principal)
CPT/HCPCS: 36415; 80053; 84443; 85025

== ENCOUNTER → 2024-10-04 10:00 | Outpatient (CLI) | payer MEDICARE, SELFPAY ==
--- NOTE | 2024-10-04 10:01 | DI.RAD.S_ITS ---
PROCEDURE: XR FOOT RT MIN 3V INDICATIONS: exal pain TECHNIQUE: 3 views of the foot were acquired. COMPARISON: None. FINDINGS: Bones: No fractures or dislocations. Hardware within the 1st metatarsal without evidence of complication No suspicious bony lesions. Soft tissues: No tibiotalar joint effusion. Achilles tendon appears normal. IMPRESSION: No acute bony abnormality or hardware complication. Dictated by: Ash Gould M.D. on 10/04/2024 at 23:20 Approved by: Ash Gould M.D. on 10/04/2024 at 23:58
--- NOTE | 2024-10-04 10:01 | DI.RAD.S_ITS ---
PROCEDURE: XR SHOULDER RT MIN 2V INDICATIONS: exal pain TECHNIQUE: 3 views of the shoulder were acquired. COMPARISON: None. FINDINGS: Bones: No fractures or dislocations. The humeral head is moderately high-riding. There is moderate glenohumeral joint space narrowing and osteophytosis. Moderate hypertrophic acromioclavicular arthropathy noted. No suspicious bony lesions. Visualized ribs appear intact. Soft tissues: No suspicious soft tissue calcifications. IMPRESSION: Degenerative change of the glenohumeral and acromioclavicular joints without evidence of acute bony abnormality. Dictated by: Ash Gould M.D. on 10/04/2024 at 23:07 Approved by: Ash Gould M.D. on 10/04/2024 at 23:19
== END ==
PROVIDERS: PCP Family Medicine; Referring Provider Family Medicine; Visit Provider Family Medicine
DX: M75.00 Adhesive capsulitis of unspecified shoulder (principal); M79.671 Pain in right foot; M79.672 Pain in left foot; M19.011 Primary osteoarthritis, right shoulder
CPT/HCPCS: 73030; 73630

== ENCOUNTER → 2024-11-13 16:40 | Outpatient (CLI) | payer MEDICARE, SELFPAY ==
--- NOTE | 2024-11-13 16:42 | DI.MG.S_ITS ---
MM screening mammo BI: 11/13/2024. BI-RADS: 2 CLINICAL: 79-year old female for bilateral screening mammogram. Tyrer-Cuzick lifetime risk of 2.4%. Current reported family history of breast cancer: mother. The patient had a prior left breast biopsy. PRIOR EXAMS 08/02/2023, 07/28/2022, 06/03/2021. MAMMOGRAPHY TECHNIQUE: 2D and 3D (tomosynthesis) digital mammographic views obtained, with additional images as needed for full coverage. Current study was also evaluated with a Computer Aided Detection (CAD) system. DENSITY B. There are scattered areas of fibroglandular density. MAMMOGRAPHY FINDINGS Right: No suspicious mass, asymmetry, microcalcification, or other abnormality seen. Left: Benign-appearing post-surgical changes noted on the left. There are no suspicious masses, calcifications, or other findings in the breast. IMPRESSION: Right * No evidence of malignancy. Left * No evidence of malignancy with benign findings. RECOMMENDATIONS Bilateral * Annual screening mammography. OVERALL ASSESSMENT CATEGORY BI-RADS-2: Benign. The [employer] recommends annual screening mammography beginning at age 40 for women with average risk of breast cancer. ELECTRONICALLY SIGNED: Izzy Hoover M.D. on 11/18/2024 at 01:13:47 AM PT Interpreting Station ID: [id number]
== END ==
LOC: MAMMO 16:41
PROVIDERS: PCP Family Medicine; Referring Provider Family Medicine; Visit Provider Family Medicine
DX: Z12.31 Encounter for screening mammogram for malignant neoplasm of breast (principal); Z80.3 Family history of malignant neoplasm of breast
CPT/HCPCS: 77063; 77067

== ENCOUNTER → 2025-04-24 16:44 | Outpatient (CLI) | payer MEDICARE, SELFPAY ==
[2025-04-24 20:38] LABS: Influenza A - CEPHEID Flu A NEGATIVE (NEGATIVE); Influenza B - CEPHEID Flu B NEGATIVE (NEGATIVE)
[2025-04-24 20:41] LABS: COVID-19 CEPHEID 4-PLEX PCR Negative (Negative)
== END ==
PROVIDERS: PCP Family Medicine; Visit Provider Physician Assistant
DX: R05.1 Acute cough (principal); J02.9 Acute pharyngitis, unspecified
CPT/HCPCS: 87070; 87637